=== PATIENT | female | born 1970 | race Caucasian/White ===

== ENCOUNTER 2020-04-20 09:20 | Outpatient (REF) | payer OTHER, SELFPAY ==
[2020-04-20 11:22] LABS: Estimated Average Glucose 223 mg/dL; Hemoglobin A1c % 9.4 %
[2020-04-20 11:59] LABS: Alanine Aminotransferase 21 U/L (0-31); Albumin Level 3.9 g/dL (3.5-5.0); Alkaline Phosphatase 60 U/L (39-117); Anion Gap 13 (12-20); Aspartate Amino Transferase 18 U/L (5-31); Bilirubin Total 0.9 mg/dL (0.0-1.0); Blood Urea Nitrogen 10 mg/dL (9-16); Calcium 8.8 mg/dL (8.4-10.2); Carbon Dioxide 26 mmol/L (22-29); Chloride 102 mmol/L (96-108); Cholesterol 137 mg/dL; Estimated Glomerular Filt Rate > 60; Glucose Fasting 177 mg/dL (60-99); HDL Cholesterol 35 mg/dL; LDL Cholesterol Calculated 73 mg/dl; Potassium 4.4 mmol/l (3.3-5.1); Sodium 137 mmol/L (135-145); Total Protein 6.7 g/dL (6.5-8.0); Triglycerides 145 mg/dL
[2020-04-20 11:59] LABS: Creatinine Urine 171.97 mg/dL; Microalbum/Creatinine Ratio Ur 9.8 ug/mg cr
== END 2020-04-20 09:21 | disposition home or self-care (01) ==
LOC: HO.MANLR 09:20
PROVIDERS: PCP Internal Medicine; Visit Provider Internal Medicine
DX: E11.9 Type 2 diabetes mellitus without complications (principal)
CPT/HCPCS: 80053; 80061; 82043; 83036

== ENCOUNTER 2020-09-04 08:32 | Outpatient (REF) | payer BC, SELFPAY ==
[2020-09-04 12:00] LABS: Estimated Average Glucose 226 mg/dL; Hemoglobin A1c % 9.5 %
== END 2020-09-04 08:33 | disposition home or self-care (01) ==
LOC: HO.MANLDS 08:32
PROVIDERS: PCP Internal Medicine; Visit Provider Internal Medicine
DX: E11.9 Type 2 diabetes mellitus without complications (principal)
CPT/HCPCS: 36415; 83036

== ENCOUNTER 2021-04-05 10:48 | Outpatient (REF) | payer BC, SELFPAY ==
[2021-04-05 14:31] LABS: Estimated Average Glucose 229 mg/dL; Hemoglobin A1c % 9.6 %
== END 2021-04-05 10:49 | disposition home or self-care (01) ==
LOC: HO.MANLDS 10:48
PROVIDERS: PCP Internal Medicine; Visit Provider Internal Medicine
DX: E11.9 Type 2 diabetes mellitus without complications (principal)
CPT/HCPCS: 36415; 83036

== ENCOUNTER 2021-08-03 16:12 | Outpatient (REF) | payer BC, SELFPAY ==
[2021-08-03 18:15] LABS: Estimated Average Glucose 214 mg/dL; Hemoglobin A1c % 9.1 %
== END 2021-08-03 16:13 | disposition home or self-care (01) ==
LOC: HO.MANLDS 16:12
PROVIDERS: PCP Internal Medicine; Visit Provider Internal Medicine
DX: E11.9 Type 2 diabetes mellitus without complications (principal)
CPT/HCPCS: 36415; 83036

== ENCOUNTER 2022-01-24 08:25 | Outpatient (REF) | payer BC, SELFPAY ==
[2022-01-24 11:42] LABS: Estimated Average Glucose 272 mg/dL; Hemoglobin A1c % 11.1 %
[2022-01-24 11:57] LABS: Alanine Aminotransferase 17 U/L (0-31); Albumin Level 3.9 g/dL (3.5-5.0); Alkaline Phosphatase 66 U/L (39-117); Anion Gap 14 (12-20); Aspartate Amino Transferase 13 U/L (5-31); Bilirubin Total 0.8 mg/dL (0.0-1.0); Blood Urea Nitrogen 13 mg/dL (9-16); Calcium 9.1 mg/dL (8.4-10.2); Carbon Dioxide 28 mmol/L (22-29); Chloride 99 mmol/L (96-108); Cholesterol 168 mg/dL; Estimated Glomerular Filt Rate > 60; Glucose Random 323 mg/dL (60-115); HDL Cholesterol 39 mg/dL; LDL Cholesterol Calculated 97 mg/dl; Sodium 136 mmol/L (135-145); Triglycerides 162 mg/dL
[2022-01-24 20:12] LABS: Microalbumin Urine < 5.0 mg/L
== END 2022-01-24 08:26 | disposition home or self-care (01) ==
LOC: HO.MANLDS 08:25
PROVIDERS: Visit Provider Internal Medicine
DX: E11.9 Type 2 diabetes mellitus without complications (principal)
CPT/HCPCS: 36415; 80053; 80061; 82043; 83036

== ENCOUNTER 2022-04-27 14:22 | Outpatient (REF) | payer BC, SELFPAY ==
[2022-04-27 18:33] LABS: Estimated Average Glucose 140 mg/dL; Hemoglobin A1c % 6.5 %
== END 2022-04-27 14:23 | disposition home or self-care (01) ==
LOC: HO.MANLDS 14:22
PROVIDERS: Visit Provider Internal Medicine
DX: E11.9 Type 2 diabetes mellitus without complications (principal)
CPT/HCPCS: 36415; 83036

== ENCOUNTER 2022-11-21 16:09 | Outpatient (REF) | payer BC, SELFPAY ==
[2022-11-21 18:03] LABS: MANUAL DIFF FLAG NO
[2022-11-21 18:27] LABS: Basophils Percent Auto 0.4 % (0-2); Eosinophils Absolute Auto 0.4 X10*3/uL (0.0-0.4); Eosinophils Percent Auto 5.2 % (0-4); Hematocrit 45.7 % (37.0-47.0); Hemoglobin 14.7 g/dl (12.0-16.0); Imm Gran Abs Auto 0.04 X10*3/uL (0.00-0.03); Imm Gran Pct Auto 0.5 % (0.0-0.4); Lymphocytes Absolute Auto 2.3 X10*3/uL (1.2-4.9); Lymphocytes Percent Auto 27.1 % (20-40); Mean Corpuscular HGB Conc 32.2 g/dl (31.0-35.0); Mean Corpuscular Hemoglobin 29.1 pg (27.0-33.0); Mean Corpuscular Volume 90.5 fL (80.0-98.0); Mean Platelet Volume 9.5 fL (9.4-12.3); Monocytes Absolute Auto 0.6 X10*3/uL (0.1-1.2); Monocytes Percent Auto 6.7 % (2-11); Neutrophils Absolute Auto 5.1 x10*3/uL (2.0-8.3); Neutrophils Percent Auto 60.1 % (45-73); Platelet Count 374 X10*3/uL (160-400); Red Blood Count 5.05 X10*6/uL (4.20-5.50); Red Cell Distribution Width 13.9 % (11.0-16.0); White Blood Count 8.5 X10*3/uL (4.8-10.8)
[2022-11-21 18:33] LABS: Estimated Average Glucose 200 mg/dL; Hemoglobin A1c % 8.6 %
[2022-11-21 18:53] LABS: Alanine Aminotransferase 16 U/L (0-31); Albumin Level 4.1 g/dL (3.5-5.0); Alkaline Phosphatase 64 U/L (39-117); Anion Gap 13 (12-20); Aspartate Amino Transferase 16 U/L (5-31); Bilirubin Total 0.9 mg/dL (0.0-1.0); Blood Urea Nitrogen 13 mg/dL (9-16); Calcium 9.9 mg/dL (8.4-10.2); Carbon Dioxide 25 mmol/L (22-29); Chloride 100 mmol/L (96-108); Estimated Glomerular Filt Rate > 60; Glucose Random 163 mg/dL (60-115); Potassium 4.1 mmol/L (3.3-5.1); Sodium 134 mmol/L (135-145)
[2022-11-21 19:30] LABS: Microalbum/Creatinine Ratio Ur 6.8 ug/mg cr
== END 2022-11-21 16:10 | disposition home or self-care (01) ==
LOC: HO.MANLDS 16:09
PROVIDERS: Visit Provider Physician Assistant
DX: E11.9 Type 2 diabetes mellitus without complications (principal); I10 Essential (primary) hypertension
CPT/HCPCS: 36415; 80053; 82043; 83036; 85025

== ENCOUNTER 2023-01-25 12:22 | Outpatient (REF) | payer BC, SELFPAY ==
[2023-01-26 05:24] LABS: Estimated Average Glucose 126 mg/dL
== END 2023-01-25 12:23 | disposition home or self-care (01) ==
LOC: HO.MANLDS 12:22
PROVIDERS: Visit Provider Internal Medicine
DX: E11.9 Type 2 diabetes mellitus without complications (principal)
CPT/HCPCS: 36415; 83036

== ENCOUNTER 2023-10-23 15:17 | Outpatient (REF) | payer OTHER, SELFPAY ==
[2023-10-23 17:22] LABS: MANUAL DIFF FLAG NO
[2023-10-23 17:47] LABS: Basophils Percent Auto 0.6 % (0-2); Eosinophils Absolute Auto 0.3 X10*3/uL (0.0-0.4); Eosinophils Percent Auto 3.9 % (0-4); Hematocrit 48.5 % (37.0-47.0); Hemoglobin 15.7 g/dl (12.0-16.0); Imm Gran Abs Auto 0.01 X10*3/uL (0.00-0.03); Imm Gran Pct Auto 0.1 % (0.0-0.4); Lymphocytes Absolute Auto 2.1 X10*3/uL (1.2-4.9); Mean Corpuscular HGB Conc 32.4 g/dl (31.0-35.0); Mean Corpuscular Hemoglobin 29.5 pg (27.0-33.0); Mean Corpuscular Volume 91.2 fL (80.0-98.0); Mean Platelet Volume 9.7 fL (9.4-12.3); Monocytes Absolute Auto 0.5 X10*3/uL (0.1-1.2); Monocytes Percent Auto 6.9 % (2-11); Neutrophils Absolute Auto 4.1 x10*3/uL (2.0-8.3); Neutrophils Percent Auto 58.5 % (45-73); Platelet Count 334 X10*3/uL (160-400); Red Blood Count 5.32 X10*6/uL (4.20-5.50); Red Cell Distribution Width 14.2 % (11.0-16.0)
[2023-10-23 17:57] LABS: Estimated Average Glucose 174 mg/dL; Hemoglobin A1c % 7.7 % (<6.0)
[2023-10-23 18:04] LABS: Alanine Aminotransferase 19 U/L (0-31); Albumin Level 3.9 g/dL (3.5-5.0); Alkaline Phosphatase 55 U/L (39-117); Anion Gap 11 (12-20); Aspartate Amino Transferase 18 U/L (5-31); Bilirubin Total 1.1 mg/dL (0.0-1.0); Blood Urea Nitrogen 8 mg/dL (9-16); Calcium 9.3 mg/dL (8.4-10.2); Carbon Dioxide 26 mmol/L (22-29); Chloride 105 mmol/L (96-108); Estimated Glomerular Filt Rate > 60; Glucose Random 137 mg/dL (60-115); Potassium 3.9 mmol/L (3.3-5.1); Sodium 138 mmol/L (135-145)
== END 2023-10-23 15:18 | disposition home or self-care (01) ==
LOC: HO.MANLDS 15:17
PROVIDERS: Visit Provider Physician Assistant
DX: E11.9 Type 2 diabetes mellitus without complications (principal)
CPT/HCPCS: 36415; 80053; 83036; 85025

== ENCOUNTER 2024-07-08 14:02 | Outpatient (REF) | payer OTHER, SELFPAY ==
--- OUTSIDE RECORDS SUMMARY | 2024-07-08 16:09 | XMS_ITS | Data Portability ---
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 Joe Novak [facility] Internal Medicine [address] [facility] [address] [address] 08/04/2021 08:54:57 08/06/2021 15:04:13 Diabetes mellitus 83916593 E13.8 will try a1c in 2-3mo and see if it comes down will offer trulicity as she refuses insulin she will consider Seasonal a ffective disorder 216776291 F33.9 get sun lamp will follow Type 2 wilner betes mellitus 25894188 E11.9 is poorly comliant even with trulicity once a week she admits she is avoiding taking care of herselfshe is noncomplia nt with her meds, noncomplia nt with the trulicity noncomplia nt with her dietnoncom pliant with exercisept admits she knows all this and just has a mental block on this she is willing to try the lantus samples given 10 units we will give samples PRIOR long detailed discussion re good diet and exercisest ill pending most recent labher a1c is 9.6 poor controll has not started on lantus yet she is staying on the trulicity will have her start collecting glucose readings had dm eye exam in summer doing ok Viral amparo roenteritis caused by Rotavirus [id number] A08.0 she janet cont with clear liquids and i will phone in some zofran [id number] Joe Novak [facility] Internal Medicine [address] [facility],[place] [address] 01/24/2022 15:13:08 01/24/2022 16:20:52 Type 2 diabetes mellitus 49492719 E11.9 is poorly comliant even with trulicity once a week she admits she is avoiding taking care of herselfshe is noncomplia nt with her meds, noncomplia nt with the trulicity noncomplia nt with her dietnoncom pliant with exercisept admits she knows all this and just has a mental block on this she is willing to try the lantus samples given 10 units we will give samples PRIOR long detailed discussion re good diet and exercisest ill pending most recent labher a1c is 9.6 poor controll has not started on lantus yet she is staying on the trulicity will have her start collecting glucose readings had dm eye exam in summer doing ok Hypertensive disorder 38 839356 I10 bps are stable and is doing ok here ;;; [id number] Joe Novak [facility] Internal Medicine [address] [facility], [place] [address] 05/04/2022 08:55:54 05/06/2022 10:48:27 Hypertensive disorder 81764754 I10 bps are stable and is doing ok here ;;; Type 2 wilner betes mellitus 81108942 E11.9 she is finaly doing well using the dexcom now and the mounjaro as well as down on the lantus to 15so she is staying with them at [facility] and doing well [id number] MARVIN KATHLEEN [facility] [address] [facility] [address] [address] 06/15/2022 08:15:20 06/17/2022 14:23:41 Type 2 diabetes mellitus 05366678 E11.9 excellent control currently 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 51684 MARVIN KATHLEEN [facility] [address] [facility] [address],[place] [address] 07/06/2022 11:16:50 07/08/2022 10:21:28 Transient visual loss 81677826 H53.121 possible aura vs ocular migraine? Type 2 wilner betes mellitus 12404542 E11.9 excellent control currently Migraine 93216143 G43.00 9 will be seeing both neuro and cardiology 66201 MARVIN KATHLEEN Internal [facility] [address] [facility] [address],[place] [address] 07/27/2022 08:57:29 07/29/2022 16:31:36 Essential hypertension 07220223 I10 stable today Migraine 93697800 G43.00 9 will monitor 04191 MARVIN KATHLEEN [facility] Internal Medicine [address] [facility] [address] [address] 09/13/2022 09:29:42 09/13/2022 13:49:14 Moderate recurrent major depression 15006365 F33.1 stable Hypertensive disorder 38 817857 I10 stable Type 2 wilner betes mellitus 76731128 E11.9 will be restarting mounjaro and dexcom Essential hypertension 51638204 I10 stable today Diabetes mellitus 570238 09 E13.8 will cont med and restart dexcom [id number] MARVIN KATHLEEN [facility] [address] [facility] [address] [address] 11/21/2022 15:25:45 11/22/2022 08:03:44 Type 2 diabetes mellitus 18776151 E11.9 will be restarting mounjaro and dexcomneed s lab work restarted Essential hypertension 71752835 I10 excellent today [id number] MARVIN KATHLEEN [facility] Internal Medicine [address] [facility] [address],[place] [address] 03/10/2023 16:14:08 03/10/2023 16:51:26 Type 2 diabetes mellitus 05050613 E11.9 will be restarting mounjaro and dexcomneed s lab work restarted Essential hypertension 27663554 I10 excellent today Moderate r ecurrent major depression 28307726 F33.1 stable [id number] MARVIN KATHLEEN [facility] Internal Medicine [address] [facility] [address],[place] [address] 06/09/2023 15:57:20 06/12/2023 09:19:42 Disorder of pituitary gland 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 stable Type 2 wilner betes mellitus 17807171 E11.9 doing well Depressive disorder 3548 9007 F33.9 stable Depressive disorder 3548 9007 F33.1 Uric acid renal calculus 706614609 N20.0 will recheck levels Screening mammography 24 361456 Z12.31 will set up with M [id number] MARVIN KATHLEEN [facility] Internal Medicine [address] [facility] [address] [address] 09/15/2023 16:07:33 09/18/2023 08:18:56 Depression screening 480125212 Z13.31 stable Type 2 wilner betes mellitus 71590249 E11.9 will set up [facility] Diabetes mellitus 376514 09 E13.8 will cont med and restart dexcom [id number] MARVIN KATHLEEN [facility] Internal Medicine [address] [facility] [address] [address] 10/13/2023 13:54:15 10/16/2023 08:54:22 Type 2 diabetes mellitus 90279905 E11.9 will set up [facility] Hypertensive disorder 38 959334 I10 stable [id number] MARVIN KATHLEEN [facility] Internal Medicine [address] [facility] [address] [address] 11/06/2023 15:42:47 11/07/2023 07:45:40 Depression screening 466313810 Z13.31 stable Type 2 wilner betes mellitus 84496952 E11.9 send in [employer] says it is approvedwi ll check with insurance [id number] MARVIN KATHLEEN Internal Medicine [address] [facility] [address],[place] [address] 04/29/2024 15:33:17 04/29/2024 16:24:53 Type 2 diabetes mellitus 00034749 E11.9 send in [employer] says it is approvedwi ll check with insurance Essential hypertension 16739477 I10 excellent today Hirsutism 609863747 L68. 0 will keep an eye on her potassium [id number] MARVIN KATHLEEN Internal Medicine [address] [facility] [address],[place] [address] 06/04/2024 15:40:21 06/04/2024 16:51:31 Type 2 diabetes mellitus 01582470 E11.9 doing great back on the shy Hypokalemia 32055317 E87 .6 Health Concerns Section Related Observation LastModified by Organization Detai ls LastModified Time None Recorded Concern Status LastModified by Organization Details LastModified Time None Recorded Advance Directives Directive None Recorded Payers Encounter Date Sequence Insurance Name Policy Number Policy Chavez Covered Member ID Chavez Member ID Guarantor Name 09/15/2023 1 [facility] [id number] Lesli Walaszek [id number] Lesli Walaszek 10/13/2023 1 [facility] [id number] Lesli Walaszek [id number] Lesli Walaszek 11/06/2023 1 [facility] [id number] Lesli Walaszek [id number] Lesli Walaszek 04/29/2024 1 [facility] [id number] Lesli Walaszek [id number] Lesli Walaszek 06/04/2024 1 [facility] [id number] Lesli Walaszek [id number] Lesli Walaszek Notes Date Note Type Note Provider Name a nd Address Organization Details Recorded Time 09/15/2023 text/html f/u Type 2 diabetes: will work with insurance now that she is on HNE to get ozempic covered PAset up for the next 3 mosthe patient is also given free samples in office for rybelsus and jardiance for the intermgiven freestyle sara 3 in the office will work with patient to get her back on the correct medication since she hasn't been on mounjaro she has gained 50 pounds, still swimming, diet still very good will work with patient going forward on keeping her sugar controlled MARVIN KATHLEEN [address] [place], [address], [facility] Internal [facility] 09/15/2023 16:50:49 10/13/2023 text/html 3 week f/u the patient reports that she never got a message about the ozempicno messages from insurance about a denialthe patient reports that the has been doing well the patient is otherwise doingthe patient did well with jardiance will resubmit it to the insurance given samples MARVIN KATHLEEN [address] [place], [address], [facility] 10/13/2023 14:43:30 11/06/2023 text/html f/u T2DM:the patient reports that she is doing wellhas the free samplesthe patient PA got approved for ozempicwill f/u with insurance about if they can release it to the pharmacy the patient reports that she is doing well with the ozempic and jardiance samples I gave arabellall send in the jardiance to her pharmacy will continue to monitor her progress her levels look pretty good since the haven't gone up to 10%she is up from 6% stable to 7.7% with loss of medications due to insurance change MARVIN KATHLEEN [address] [place], [address], [facility] 11/06/2023 17:39:23 04/29/2024 text/html 3 mos f/u T2DM: needs f/u bwdoing really well on the mounjaro, her sugar is coming down, her weight is dropping down from the 20 pounds she gained after she was forced to come off the mounjaro since her insurance changed doing much better will adjust up the dose to the 7.5 mg, she was originally with 15 mg, will keep increase HTN: stable will need to monitor the potassium level MARVIN KATHLEEN [address] [place], [address], [facility] 04/29/2024 16:22:28 06/04/2024 text/html 1 mos f/u T2DM: doing much better on the mounjarowill increase the rate 10 mg, no side effects or symptoms the patient will continue monitoring her sugar the patient was seen by for fall, tripped over suitcase, the patient hurt her left hand, right knee and left footfoot is still bothering her, probable high grade sprain given level of inflammation in the footXR clear, if it still doesn't improve will f/u with XR the patient is doing well overall her father just passed awaydiscussed possibly later stopping the sertraline when she is feeling better MARVIN KATHLEEN [address] [facility], [place], [address], [facility] Internal Medicine 06/04/2024 16:48:28 OBGyn Episode No OBEpisode recorded.
--- OUTSIDE RECORDS SUMMARY | 2024-07-08 16:10 | XMS_ITS | Clinical Summary ---
Author Organization [facility] Address [address] [place] [address] Care Team Providers Care Gathering Machine Setter Name Role Phone Unavailable Primary Care Provider Unavailabl e Social History Tobacco Use Types Packs/Day Years Used Date Smoking Tobacco: Never Assessed Sex and Gender Information Value Date Recorded Sex Assigned at Not on file Gender Identity Not on file Sexual Orientation Not on file Plan of Treatment Not on file
[2024-07-08 17:58] LABS: MANUAL DIFF FLAG NO
[2024-07-08 18:11] LABS: Basophils Absolute Auto 0.1 X10*3/uL (0.0-0.2); Basophils Percent Auto 0.9 % (0-2); Eosinophils Absolute Auto 0.7 X10*3/uL (0.0-0.4); Eosinophils Percent Auto 9.6 % (0-4); Hematocrit 45.3 % (37.0-47.0); Hemoglobin 14.8 g/dl (12.0-16.0); Imm Gran Abs Auto 0.03 X10*3/uL (0.00-0.03); Imm Gran Pct Auto 0.4 % (0.0-0.4); Lymphocytes Absolute Auto 2.2 X10*3/uL (1.2-4.9); Lymphocytes Percent Auto 28.2 % (20-40); Mean Corpuscular HGB Conc 32.7 g/dl (31.0-35.0); Mean Corpuscular Hemoglobin 29.4 pg (27.0-33.0); Mean Corpuscular Volume 90.1 fL (80.0-98.0); Mean Platelet Volume 9.7 fL (9.4-12.3); Monocytes Absolute Auto 0.5 X10*3/uL (0.1-1.2); Monocytes Percent Auto 6.7 % (2-11); Neutrophils Absolute Auto 4.2 x10*3/uL (2.0-8.3); Neutrophils Percent Auto 54.2 % (45-73); Platelet Count 309 X10*3/uL (160-400); Red Blood Count 5.03 X10*6/uL (4.20-5.50); Red Cell Distribution Width 13.8 % (11.0-16.0); White Blood Count 7.7 X10*3/uL (4.8-10.8)
[2024-07-08 18:23] LABS: Estimated Average Glucose 163 mg/dL; Hemoglobin A1C 214.2345 umol/L; Hemoglobin A1c % 7.3 % (<6.0); Total Hemoglobin (HGBA1C) 3782.8544 umol/L
[2024-07-08 18:38] LABS: Cholesterol 191 mg/dL (<200); HDL Cholesterol 45 mg/dL (>40); LDL Cholesterol Calculated 112 mg/dL (<100); Triglycerides 173 mg/dL (<150)
== END 2024-07-08 14:03 | disposition home or self-care (01) ==
LOC: HO.MANLDS 14:02
PROVIDERS: Visit Provider Physician Assistant
DX: E11.9 Type 2 diabetes mellitus without complications (principal)
CPT/HCPCS: 36415; 80061; 83036; 85025

== ENCOUNTER 2025-04-04 11:25 | Outpatient (REF) | payer OTHER, SELFPAY ==
--- OUTSIDE RECORDS SUMMARY | 2025-04-04 12:15 | XMS_ITS | Encounter Summary ---
Author Organization [facility] Address [address] [place] [address] Phone Care Team Providers Care Fine Sander Name Role Phone Scarlet Joe Rojas DO Unavailable Nicolle Bansal MACHINE TENDER Unavailable [phone] Keila Jim MACHINE TENDER Unavailable [phone] Madelaine Rodriguez MD Unavailable [phone] Oralia Pastor NP Unavailable [phone] Nan Portillo MD Unavailable [phone] Joe Novak DO Primary Care Provider [phone] Joe Novak DO Unavailable Scarlet, Joe Rojas DO Primary Care Provider [phone] Encounter Details Date Type Department Care Team (Late st Contact Info) Description 03/19/2018 Ancillary Orders Virtual Department [address] [place] [address] Joe Novak DO [address] [employer] [place] [address] [place] [address] Breast screening Social History Tobacco Use Types Packs/Day Years Used Date Smoking Tobacco: Never Assessed Comments Unknown Sex and Gender Information Value Date Recorded Sex Assigned at Female 04/15/2022 12:43 PM EST Legal Sex Female 9:33 PM EDT Gender Identity Female 04/15/2022 12:43 PM EST Sexual Orientation Straight 04/15/2022 12 :43 PM EST documented as of this encounter Plan of Treatment Not on file documented as of this encounter Results * BI MAMMOGRAM SCREENING WITH TOMOSYNTHESIS WITH CAD (BILATERAL) (03/20/2018 2:14 PM EST) Anatomical Region Laterality Modality Breast Left, Breast Right, Breast Bilateral Bila teral Mammography 03/20/2018 2:45 PM EST Impressions 03/20/2018 2:51 PM EST No mammographic evidence of malignancy. Recommend routine annual surveillance. BI-RADS CATEGORY: 2 - Benign finding. DENSITY: There are scattered fibroglandular densities. POS - CDHMAMA Narrative 03/20/2018 2:51 PM EST 47-year-old female with no current breast symptoms. Comparison made to previous on 11/08/2016 and as far back as 12/13/2006. Interpretation made in conjunction with computer-aided detection and tomosynthesis. There are scattered areas of fibroglandular density. Stable benign right upper outer quadrant lymph node. There are no suspicious masses, areas of architectural distortion, or suspicious clusters of microcalcifications. Procedure Note Maggie Boss MD - 03/20/2018 47-year-old female with no current breast symptoms. Comparison made toprevious on 11/08/2016 and as far back as 12/13/2006. Interpretation madein conjunction with computer-aided detection and tomosynthesis. There are scattered areas of fibroglandular density. Stable benign rightupper outer quadrant lymph node. There are no suspicious masses, areas of architectural distortion, orsuspicious clusters of microcalcifications. IMPRESSION: No mammographic evidence of malignancy. Recommend routine annualsurveillance. BI-RADS CATEGORY: 2 - Benign finding. DENSITY: There are scattered fibroglandular densities. POS - CDHMAMA us Joe A Bigda DO IMG MG EXAMS Final Result documented in this encounter Visit Diagnoses Diagnosis Breast screening Breast screening, unspecified Breast screening Breast screening, unspecified documented in this encounter Additional Health Concerns Infection Onset Date Last Indicated Resolved Time CoV-Risk 08/01/2023 08/01/2023 08/12/2023 1:21 AM EDT CoV-Risk 06/21/2024 06/21/2024 07/02/2024 1:21 AM EST documented as of this encounter Care Teams Fine Sander Relationship Specialty Start Date End Date Joe Novak DO [address] [address] PCP - General 05/18/17 06/19/22 Joe Novak DO [address] [address] PCP - General Internal Medicine 06/20/22 Joe Novak DO [address] [place] [address] Historical LMR Provider 03/05/17 05/22/21 Nicolle Bansal, MACHINE TENDER [address] [place] [address] [email or web address] Historical LMR Provider 03/05/17 2 Keila Jim, JOHN [address] [place] [address] Historical LMR Provider 03/05/17 2 Madelaine Rodriguez MD [address] [address] Historical LMR Provider 03/05/17 Oralia Pastor NP [address] [place] [address] Historical LMR Provider 03/05/17 2 Nan Portillo MD [address] [place] [address] [email or web address] Historical LMR Provider 03/05/17 05/22/21 Joe Novak DO [address] [place] [address] [email or web address] Insurance Assigned Provider 08/19/23 11/18/23 documented as of this encounter Additional Source Comments The information contained in this document represents components of the legal health record. It is not the complete legal health record.[facility]
--- OUTSIDE RECORDS SUMMARY | 2025-04-04 12:15 | XMS_ITS | Encounter Summary ---
Author Organization [facility] Address [address] [place] [address] Phone Care Team Providers Care Soil Analyst Name Role Phone Scarlet Joe Rojas DO Unavailable Nicolle Bansal CATHODE RAY TUBE ASSEMBLER Unavailable [phone] Keila Jim CATHODE RAY TUBE ASSEMBLER Unavailable [phone] Madelaine Rodriguez MD Unavailable [phone] Oralia Pastor NP Unavailable [phone] Nan Portillo MD Unavailable [phone] Bignorth, Joe Rojas DO Primary Care Provider [phone] Joe Novak DO Unavailable Bigda, Joe Rojas DO Primary Care Provider [phone] Encounter Details Date Type Department Care Team (Late st Contact Info) Description 03/26/2018 Transcribe Orders [facility] Main [address] [place] [address] Joe Novak, DO [address] [facility] [place] [address] Type 2 diabetes mellitus without complication, unspecified whether vermin exterminator insulin use (Primary Dx) Social History Tobacco Use Types Packs/Day Years Used Date Smoking Tobacco: Never Assessed Comments No Sex and Gender Information Value Date Recorded Sex Assigned at Female 04/15/2022 12:43 PM EST Legal Sex Female 9:33 PM EDT Gender Identity Female 04/15/2022 12:43 PM EST Sexual Orientation Straight 04/15/2022 12 :43 PM EST documented as of this encounter Functional Status documented as of this encounter Plan of Treatment Not on file documented as of this encounter Results * (ABNORMAL) Hemoglobin A1c (03/26/2018 5:12 PM EST) HEMOGLOBIN A1C 9.5(H) 4.3 - 5.8 % [facility] Blood 03/26/2018 5:12 PM EST 03/26/2018 5:14 PM EST us Joe Novak DO LAB BLOOD BKR ORDERABLES Final R esult Performing Organization Address City/State/[facility] Co de Phone Number [facility] [address] [place] [address] documented in this encounter Visit Diagnoses Diagnosis Type 2 diabetes mellitus without complication, unspecified whether vermin exterminator insulin use- Primary documented in this encounter Additional Health Concerns Infection Onset Date Last Indicated Resolved Time CoV-Risk 08/01/2023 08/01/2023 08/12/2023 1:21 AM EDT CoV-Risk 06/21/2024 06/21/2024 07/02/2024 1:21 AM EST documented as of this encounter Care Teams Soil Analyst Relationship Specialty Start Date End Date Joe Novak DO [address] [address] [email or web address] PCP - General 05/18/17 06/19/22 Joe Novak DO [address] [employer] [facility] [address] [place] [address] PCP - General Internal Medicine 06/20/22 Joe Novak DO [address] [place] [address] Historical LMR Provider 03/05/17 05/22/21 Nicolle Bansal NP [address] [place] [address] [email or web address] Historical LMR Provider 03/05/17 2 Keila Jim NP [address] [place] [address] Historical LMR Provider 03/05/17 2 Madelaine Rodriguez MD [address] [address] Historical LMR Provider 03/05/17 Oralia Pastor NP [address] [place] [address] Historical LMR Provider 03/05/17 2 Nan Portillo MD [address] [address] [email or web address] Historical LMR Provider 03/05/17 05/22/21 Joe Novak DO [address] [place] [address] [place] [address] Insurance Assigned Provider 08/19/23 11/18/23 documented as of this encounter Additional Source Comments The information contained in this document represents components of the legal health record. It is not the complete legal health record.[facility]
--- OUTSIDE RECORDS SUMMARY | 2025-04-04 12:15 | XMS_ITS | Encounter Summary ---
Author Organization [facility] Address [facility] [employer] [address] [address] Phone Care Team Providers Care Warrant Server Name Role Phone Madelaine Rodriguez MD Unavailable [phone] Bigda, Joe A DO Primary Care Provider [phone] Bigda, Joe A DO Unavailable Bigda, Joe A DO Primary Care Provider [phone] Encounter Details Date Type Department Care Team (Late st Contact Info) Description 06/07/2022 Procedure Pass [facility], [address] [address] Social History Tobacco Use Types Packs/Day Years Used Date Smoking Tobacco: Never Smokeless Tobacco: Never Alcohol Use Standard Drinks/Week Comments Yes 0 (1 standard drink = 0.6 oz pur e alcohol) occasional Comments No Sex and Gender Information Value Date Recorded Sex Assigned at Female 04/15/2022 12:43 PM EST Legal Sex Female 9:33 PM EDT Gender Identity Female 04/15/2022 12:43 PM EST Sexual Orientation Straight 04/15/2022 12 :43 PM EST 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 Wish to be (Past 1 Month) No 06/07/2022 5:00 PM Yadira Vail RN 2. Non-Specific Active Suici travis Thoughts (Past 1 Month) No 06/07/2022 5:00 PM Ebenezer Vail RN 6. Suicidal Behavior (Lifetime) No 5:00 PM Yadira Vail RN documented as of this encounter Plan of Treatment Not on file documented as of this encounter Visit Diagnoses Not on filedocumented in this encounter Additional Health Concerns Infection Onset Date Last Indicated Resolved Time CoV-Risk 08/01/2023 08/01/2023 08/12/2023 1:21 AM EDT CoV-Risk 06/21/2024 06/21/2024 07/02/2024 1:21 AM EST documented as of this encounter Care Teams Warrant Server Relationship Specialty Start Date End Date Joe Novak DO [address] [address] PCP - General 05/18/17 06/19/22 Joe Novak DO [address] [address] PCP - General Internal Medicine 06/20/22 Madelaine Rodriguez MD [address] [address] Historical LMR Provider 03/05/17 Joe Novak DO [address] [place] [address] Insurance Assigned Provider 08/19/23 11/18/23 documented as of this encounter Additional Source Comments The information contained in this document represents components of the legal health record. It is not the complete legal health record.[facility]
--- OUTSIDE RECORDS SUMMARY | 2025-04-04 12:15 | XMS_ITS | Clinical Summary ---
Author Organization [facility] Address [address] [place] [address] Phone Care Team Providers Care Police Crime Scene Technician Name Role Phone Madelaine Rodriguez MD Unavailable [phone] Joe Novak DO Primary Care Provider [phone] Allergies No known active allergies Medications allopurinol (ZYLOPRIM) 300 MG tablet Take 300 mg by mouth daily. Active sertraline (ZOLOFT) 100 MG tablet Take 200 mg by mouth daily. Active atorvastatin (LIPITOR) 10 MG tablet Take 10 mg by mouth daily. Active clobetasol (TEMOVATE) 0.05 % ointmentIndicat ions:Lichen sclerosus APPLY TO VULVA TWICE WEEKLY 15 g 2 Active Additional Information Patient taking differently: APPLY TO VULVA TWICE WEEKLY, Monday/, Reported on 06/07/2022 amLODIPine (NORVASC) 10 MG tablet Take 0.5 tablets (5 mg total) by mouth daily. Okay to restart if systolic blood pressure is over 120, restarted at half dose 3 Active Additional Information Patient taking differently: 10 mgOral Daily, Okay to restart if systolic blood pressure is over 120, restarted at half dose, Reported on 07/21/2022 tirzepatide (MOUNJARO) 10 mg/0.5 mL PnIj 3 Active SUMAtriptan (IMITREX) 50 MG tabletIndicatio ns:Migraine with visual aura Take 1 tablet (50 mg total) by mouth once as needed for migraine. Can repeat dose in 2 hours if needed. Do not exceed 2 doses in a 24 hour period. Max dose 200mg/ day 18 tablet 11 3 Active lisinopril (PRINIVIL,ZESTR IL) 10 MG tablet 3 Active Active Problems Problem Noted Date Diagnosed Date TIA (transient ischemic attack) 07/21/2022 Assessment & Plan (07/21/2022 12:17 PM EST): Patient had an episode of monocular blindness which was initially diagnosed to be a TIA. He tells me that now they are thinking about whether it is secondary to migraine. Cardiac work-up included an echocardiogram which did not show PFO and no intracardiac thrombus and normal LV function The monitor for a week did not show any evidence of atrial fibrillation or flutter. I asked the patient if she would like to go through a 30-day Holter monitor and/or an ILR. Patient at this point thinks that she is doing well and since there there is question on diagnosis of TIA also she will rather sit tight and see how she does Also confident about getting treatment for hypertension and cardiac risk factors and at this point would not like to have any cardiology work-up Paroxysmal atrial fibrillation 07/21/2022 Assessment & Plan (07/21/2022 12:19 PM EST): She had 1 episode in her Apple Watch which told her that she had atrial fibrillation and this was before her stroke. At this point she does not want to have any work-up for atrial fibrillation including ILR or 30-day event monitor. I advised her that obesity hypertension and sleep apnea are important because of atrial fibrillation and she should continue to lose weight and get a sleep study done other than treatment of her hypertension she agreed and she will go back to her primary care physician Migraine 07/06/2022 09/08/2022 Transient visual loss 06/15/2022 09/08/2022 Diabetes 06/07/2022 Assessment & Plan (06/09/2022 11:28 AM EST): Home on outpatient regimen Transient vision disturbance of right eye 2022 Assessment & Plan (06/09/2022 11:57 AM EST): Follow-up with [facility] neurology on 06/09 thought she may be having a migraine with prolonged aura F/u with neurology within 2 months. Neurologist reconfirmed that she does not have any concern for giant cell arteritis/PMR, was not concern for acute stroke or TIA. Also confirmed that attendings read of the EEG showed that the previously seen spikes were a normal variant and the test is normal showing no epileptiform discharges. Bruising 01/08/2022 Uncontrolled type 2 diabetes mellitus 06/27/2019 Family history of breast cancer 06/27/2019 Overview (06/27/2019): Sister with breast cancer twice Assessment & Plan (06/27/2019 4:25 PM EST): Unknown if genetic testing done on sister; asked patient again to speak with her sister about this; discussed the benefits of this knowledge Obesity due to excess calories with serious katya rbidity 03/28/2018 Lichen sclerosus 09/12/2017 Overview (04/22/2022): Biopsy proven Clobetasol once weekly, more as needed Assessment & Plan (09/23/2020 10:55 AM EDT): Using clobetasol once every 1-2 weeks, minimally itchy Hypopigmented vulva and perineum, without lesions except for skin split at perineum. Absent labia minora Advised at least once weekly clobetasol Assessment & Plan (06/27/2019 4:26 PM EST): Labia minora absent, the area medial to hairline is excoriated and reddened Discussed avoid soaps, scratching. Barrier creams revewed. [facility] guidelines put in AVS Hypertension 09/12/2017 Assessment & Plan (07/21/2022 12:19 PM EST): She is getting treated with amlodipine. She will follow-up with her primary care physician and get hypertension treated optimally. Assessment & Plan (06/09/2022 11:28 AM EST): Blood pressures were lower than baseline in hospital, restarted at the time of discharge at significantly lower doses Will need PCP follow-up within the next few business days. 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 Immunizations Immunization Administration Dates Next Due COVID-19 (Pre-03/06) Moderna Vaccine, mRNA, PF 03/22/2021,06/12/2020,05/15/2020 Influenza Quadrivalent w/ Preservative IM 2020,01/15/2020,03/20/2018 Tdap 11/04/2015 Family History Medical History Relation Comments CV disease Father Hypertension Father Diabetes mellitus Maternal Grandmother CV disease Mother Colon cancer Mother Hypertension Mother Lung cancer Mother Breast cancer Sibling 1 Diabetes mellitus Sibling 1 Atrial fibrillation Sister Breast cancer Sister an had reoccuren ce Relation Status Comments Father Alive Maternal Grandmother Mother Sibling 1 Sibling 2 Sister Social History Tobacco Use Types Packs/Day Years Used Date Smoking Tobacco: Never Passive Smoke Exposure: Never Smokeless Tobacco: Never Alcohol Use Standard Drinks/Week Comments Not Currently 0 (1 standard drink = 0.6 oz pur e alcohol) occasional Education Answer Date Recorded Are you interested in more education? Not on erika e 09/08/2022 Are you concerned about learning? Not on file 09/08/2022 No 09/08/2022 No 09/08/2022 Digital Access Answer Date Recorded No 10/08/2022 No 10/08/2022 Reliable internet access at home? Not on file 10/08/2022 Device with a working camera? Not on file Intimate Partner Violence Answer Date R ecorded Are you denied basic needs s uch as food, clothing, or medical care? No 06/21/2024 In the past 12 months have y ou been in a relationship with a person who hurts, threatens, or tries to control you? No 06/21/2024 Are you denied basic needs s uch as food, clothing, or medical care? No 06/21/2024 In the past 12 months have y ou been in a relationship with a person who hurts, threatens, or tries to control you? 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 file Not on file Last Filed Vital Signs Vital Sign Reading Time Taken Comments Blood Pressure 114/81 06/21/2024 1:21 PM EST Pulse 84 06/21/2024 1:21 PM EST Temperature 36.9 C (98.4 F) 06/21/2024 1:21 PM EST Respiratory Rate 16 06/21/2024 1:21 PM EST Oxygen Saturation 100% 06/21/2024 1:21 PM EST Inhaled Oxygen Concentration - - Weight 125.2 kg (276 lb) 06/21/2024 5:39 AM EST Height 170.2 cm (5' 7 ) 06/21/2024 5:39 AM EST Body Mass Index 43.23 06/21/2024 5:39 AM EST Plan of Treatment Health Maintenance Due Date Last Done Comments DEPRESSION SCREENING 1983 HEPATITIS C SCREENING 10/04/1989 HIV ONE-TIME SCREENING (18-65 YEARS) 10/04/1989 PNEUMOCOCCAL VACCINES (50+ years) (1 of 2 - PCV) 10/04/1990 COLOGUARD 10/04/2016 COLONOSCOPY 10/04/2016 COLORECTAL CANCER SCREENING 10/04/2016 FIT TEST 10/04/2016 FOBT 10/04/2016 SIGMOIDOSCOPY 10/04/2016 VIRTUAL COLONOSCOPY 10/04/2016 DIABETIC EYE EXAM 06/27/2019 RSV VACCINE (1 - Risk 50-74 years 1-dose series) 10/04/2021 ZOSTER VACCINES (1 of 2) 10/04/2021 HEMOGLOBIN A1C 09/02/2023 03/03/2023, 10, 11/21/2022, Additional history exists MAMMOGRAM 05/13/2024 05/13/2022, 09/12, 03/20/2018 BLOOD PRESSURE 11/15/2024 05/18/2024 INFLUENZA VACCINE (#1) 2024 , 02/09/2023, 02/12/2021, Additional history exists COVID-19 VACCINE (5 - 2024- season) 2025 02/11/2024, 03/22/2021, 06/12/2020, Additional history exists CREATININE LEVEL 06/21/2025 06/21/2024, 03/2023, 06/20/2022, Additional history exists POTASSIUM LEVEL 06/21/2025 06/21/2024, 06/15, 06/20/2022, Additional history exists PAP SMEAR 09/23/2025 09/23/2020, 06/25/2015 Adult Td,Tdap Booster 11/03/2025 11/04/2015 SMOKING STATUS SCREENING (Once After 26 Yrs) Completed 05/18/2024 HEPATITIS A VACCINES Aged Out No long er eligible based on patient's age to complete this topic HIB VACCINES Aged Out No longer eligi ble based on patient's age to complete this topic MENINGOCOCCAL VACCINES (ACWY) Aged Out No longer eligible based on patient's age to complete this topic MENINGOCOCCAL VACCINES (B) Aged Out N o longer eligible based on patient's age to complete this topic Medical Devices Not on file Procedures Procedure Name Priority Date/Time Associated Diagnosis Comments BASIC METABOLIC PANEL (BMP) STAT 06/21/2024 7:08 AM EST HEMOGLOBIN A1C Routine 06/08/2022 5:08 AM EST BI MAMMOGRAM SCREENING WITH TOMOSYNTHESIS WITH CAD (BILATERAL) Routine 05/13/2022 3:06 PM EST Breast cancer screening by mammogram PAP TEST Routine 09/23/2020 12:00 AM EDT from Last 3 Months or Most Recently Relevant to Health Maintenance Results * (ABNORMAL) Basic metabolic panel (06/21/2024 7:08 AM EST) SODIUM 136 133 - 146 mmol/L [facility] CHLORIDE 100 96 - 108 mmol/L [facility] POTASSIUM 4.3 3.3 - 5.1 mmol/L [facility] CO2 24 21 - 35 mmol/L [facility] BUN 18 6 - 19 mg/dL [facility] CREATININE 0.80 0.5 - 1.5 mg/dL [facility] GLUCOSE 195(H) 70 - 99 mg/dL [facility] CALCIUM 9.4 8.4 - 10.3 mg/dL [facility] EGFR 89 >59 mL/min/1.7 3m2 [facility] Comment:Estimated glomerular filtration rate calculated using the CKD-EPI refit equation. ANION GAP 16 10 - 20 mmol/L [facility] Blood 06/21/2024 7:08 AM EST 06/21/2024 7:10 AM EST us Jarett Villeda MD LAB BLOOD BKR ORDERABLES Final Result Performing Organization Address City/[facility]/ZIP Co de Phone Number [address] [address] * (ABNORMAL) Hemoglobin A1c (06/08/2022 5:08 AM EST) HEMOGLOBIN A1C 5.9(H) 4.3 - 5.8 % [facility] Blood 06/08/2022 5:08 AM EST 06/08/2022 6:57 AM EST us Saumya WONG LAB BLOOD BKR ORDERABLES Heather l Result Performing Organization Address [facility]/ZIP Co de Phone Number [address] [address] * BI MAMMOGRAM SCREENING WITH TOMOSYNTHESIS WITH CAD (BILATERAL) (05/13/2022 3:06 PM EST) Anatomical Region Laterality Modality Breast Left, Breast Right, Breast Bilateral Bila teral Mammography 05/13/2022 3:09 PM EST Impressions 05/13/2022 3:16 PM EST BILATERAL BREASTS: Benign, no evidence of malignancy. Recommend bilateral annual screening mammography in 12 months. Bi-RADS: BI-RADS CATEGORY: 2 - Benign finding. DENSITY: There are scattered fibroglandular densities. RIGHT RECOMMENDATION DUE DATE: 12 Months Recommendation: Right Mammography Screening LEFT RECOMMENDATION DUE DATE: 12 Months Recommendation: Left Mammography Screening Narrative 05/13/2022 3:16 PM EST STUDY: Bilateral screening mammography with tomosynthesis and CAD TECHNIQUE: Bilateral full-field digital screening mammography is obtained and read in conjunction with computer-aided detection. Tomosynthesis as well as 2-D C view imaging were obtained. COMPARISON: Comparison made to multiple prior studies dating back to December 2006. BILATERAL BREASTS: No new masses, suspicious calcifications or other abnormalities are seen. Scattered bilateral benign calcifications are noted. No significant interval change. Procedure Note Glen Artis MD - 05/13/2022 STUDY: Bilateral screening mammography with tomosynthesis and CAD TECHNIQUE: Bilateral full-field digital screening mammography is obtainedand read in conjunction with computer-aided detection. Tomosynthesis aswell as 2-D C view imaging were obtained. COMPARISON: Comparison made to multiple prior studies dating back toDecember 2006. BILATERAL BREASTS: No new masses, suspicious calcifications or otherabnormalities are seen. Scattered bilateral benign calcifications arenoted. No significant interval change. IMPRESSION: BILATERAL BREASTS: Benign, no evidence of malignancy. Recommend bilateralannual screening mammography in 12 months. Bi-RADS: BI-RADS CATEGORY: 2 - Benign finding. DENSITY: There are scattered fibroglandular densities. RIGHT RECOMMENDATION DUE DATE: 12 Months Recommendation: Right Mammography Screening LEFT RECOMMENDATION DUE DATE: 12 Months Recommendation: Left Mammography Screening Madelaine Rodriguez MD IMG MG EXAMS Final Resu lt * Pap Smear (09/23/2020 12:00 AM EDT) 09/23/2020 09/24/2020 8:4 5 AM EDT Narrative SEE NARRATIVE - 10/02/2020 11:31 AM EDT [address] [address] Level Vial Curvature Gauger: Nan Flores MD HIGHWAY MAINTAINER Cytology Report FINAL DIAGNOSIS A. PAP SMEAR (SUREPATH) CE: SPECIMEN ADEQUACY: Satisfactory for evaluation; transformation zone present. INTERPRETATION: NEGATIVE FOR INTRAEPITHELIAL LESION OR MALIGNANCY. Endometrial cells are present in a woman 45 years of age or older. Endometrial cells after age 45, particularly out of phase or after menopause, may be associated with benign endometrium, hormonal alterations, and, less commonly, endometrial/uterine abnormalities. Clinical correlation is recommended. Electronically Signed Out By: ELIEZER Dietz MD(ASCP) By his/her signature above, the pathologist listed as making the Final Diagnosis certifies that he/she has personally reviewed this case and confirmed or corrected the diagnosis. The Pap test is a screening test primarily for squamous cancers and precursors and has associated false-negative and false-positive results. New technologies such as liquid-based preparations may decrease but will not eliminate all false-negative results. Regular sampling and follow-up of unexplained clinical signs and symptoms are recommended to minimize false negative results. PROCEDURES/ADDENDA HPV Testing (Requested) Ordered Date: 09/24/2020 A. PAP SMEAR (SUREPATH) CE: Human Papilloma Virus Test Negative for high-risk human papillomavirus types 16, 18, 45 and the Other high risk probe set (Includes 31, 33, 35, 39, 51, 52, 56, 58, 59, 66, 68) by [employer] Onclarity HR-HPV analysis. Clinical correlation is advised. This HPV test was performed at [facility], [address] [place] [address]. This test has been FDA approved for SurePath cervical cytology specimens. The accuracy and precision of this test for all other specimen sources has been verified in the Cytopathology Laboratory of the [facility] and has not been cleared or approved by the U.S. Food and Drug Administration. Clinical correlation is advised. CLINICAL HISTORY Date of Last Menstrual Period: Not Provided Menstrual History: Unknown Other Clinical Conditions: Screening Pap SPECIMEN SOURCE A: PAP SMEAR (SUREPATH) CE Patient Name: RANDY IRWIN : 1970 (Age: 49) Sex: F Institution: [facility] Location: [facility] Date of Collection: 09/23/2020 Date of Reported: 10/02/2020 11:31 Results to: Madelaine Rodriguez MD Madelaine Rodriguez MD CYTOLOGY ORDERABLES Final Result SEE NARRATIVE from Last 3 Months or Most Recently Relevant to Health Maintenance Insurance HMO O O O O O Advance Directives For more information, please contact: [phone] (9AM - 5PM [facility], Monday-Monday) * Full Code (Latest Code Status on File) Date Activated Date Inactivated Comments 06/07/2022 3:59 PM Question Answer Comments Code Status Confirmed With: Patient Care Teams Police Crime Scene Technician Relationship Specialty Start Date End Date Joe Novak DO [address] [place] [phone] [email or web address] PCP - General Internal Medicine 06/20/22 Madelaine Rodriguez MD [address] [place] [phone] [email or web address] Historical LMR Provider 03/05/17 Additional Source Comments The information contained in this document represents components of the legal health record. It is not the complete legal health record.[facility]
--- OUTSIDE RECORDS SUMMARY | 2025-04-04 12:15 | XMS_ITS | Encounter Summary ---
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 Not on file Not on file documented as of this encounter Plan of Treatment Not on file documented as of this encounter Visit Diagnoses Not on filedocumented in this encounter Additional Health Concerns Infection Onset Date Last Indicated Resolved Time CoV-Risk 08/01/2023 08/01/2023 08/12/2023 1:21 AM EDT CoV-Risk 06/21/2024 06/21/2024 07/02/2024 1:21 AM EST documented as of this encounter Care Teams Senior Compensation Analyst Relationship Specialty Start Date End Date Joe Novak DO [address] [address] PCP - General 05/18/17 06/19/22 Joe Novak DO [address] [address] PCP - General Internal Medicine 06/20/22 Madelaine Rodriguez MD [address] [address] Historical LMR Provider 03/05/17 Joe Novak DO [address] [facility] [place] [address] Insurance Assigned Provider 08/19/23 11/18/23 documented as of this encounter Additional Source Comments The information contained in this document represents components of the legal health record. It is not the complete legal health record.[facility]
--- OUTSIDE RECORDS SUMMARY | 2025-04-04 12:15 | XMS_ITS | Encounter Summary ---
Author Organization [facility] Address [address] [place] [address] [place] [phone] Phone Care Team Providers Care Center Mgr Name Role Phone Madelaine Rodriguez MD Unavailable [phone] Joe Novak DO Primary Care Provider [phone] Encounter Details Date Type Department Care Team (Latest Contact Info) Description 10/23/2024 Ancillary Orders [facility] Orthopedics & Sports Medicine [address] [place] [address] Dwayne Edge PA-C [address] [place] [address] Orthopedics & Sports Medicine, [place], [place] [id number] Knee pain, bilateral (Primary Dx) Social History Tobacco Use Types [...] Date 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 Interpretation has been included in the provider encounter note for this date of service. Dwayne Edge PA-C IMG XR LOWER EXTREMITY Final Result documented in this encounter Visit Diagnoses Diagnosis Knee pain, bilateral Pain in joint, lower leg Knee pain, bilateral- Primary Pain in joint, lower leg documented in this encounter Care Teams Center Mgr Relationship Specialty Start Date End Date Joe Novak DO [address] [place] [address], [address] [place] [address] [email or web address] PCP - General Internal Medicine 06/20/22 Madelaine Rodriguez MD [address] [place] [address], [address] [place] [address] Historical LMR Provider 10/22/17 documented as of this encounter Additional Source Comments The information contained in this document represents components of the legal health record. It is not the complete legal health record.[facility]
--- OUTSIDE RECORDS SUMMARY | 2025-04-04 12:15 | XMS_ITS | Encounter Summary ---
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 file Not on file documented as of this encounter Functional Status * Calculated C-SSRS Risk Score (Lifetime/Recent) Answer Date of Assessment Author No Risk Indicated 06/07/2022 5:00 PM EST Yadira Navarrete RN * Trail Suicide Severity Rating Scale (Screener/Recent Self-Report) Question [...] documented as of this encounter Care Teams Change Management Consultant Relationship Specialty Start Date End Date Joe Novak DO [address] [address] PCP - General 05/18/17 06/19/22 Joe Novak DO [address] [place] [address] PCP - General Internal Medicine 06/20/22 Madelaine Rodriguez MD [address] [place] [address] Historical LMR Provider 03/05/17 Joe Novak DO [address] [place] [address] Insurance Assigned Provider 08/19/23 11/18/23 documented as of this encounter Additional Source Comments The information contained in this document represents components of the legal health record. It is not the complete legal health record.[facility]
--- OUTSIDE RECORDS SUMMARY | 2025-04-04 12:15 | XMS_ITS | Clinical Summary ---
Author Organization [facility] Address [address] [place] [address] Care Team Providers Care Computer Systems Technician Name Role Phone Unavailable Primary Care Provider Unavailabl e Social History Tobacco Use Types Packs/Day Years Used Date Smoking Tobacco: Never Assessed Sex and Gender Information Value Date Recorded Sex Assigned at Not on file Gender Identity Not on file Sexual Orientation Not on file Plan of Treatment Not on file
--- OUTSIDE RECORDS SUMMARY | 2025-04-04 12:15 | XMS_ITS | Encounter Summary ---
Author Organization [facility] Address [address] [place] [address] Phone Care Team Providers Care Light Industrial Name Role Phone Madelaine Rodriguez MD Unavailable [phone] Joe Novak DO Unavailable Joe Novak DO Primary Care Provider + [phone] Encounter Details Date Type Department Care Team (Late st Contact Info) Description 06/25/2022 Procedure Pass [facility], Ct Scan - [address] [address] Social History Tobacco Use Types Packs/Day Years Used Date Smoking Tobacco: Never Smokeless Tobacco: Never Alcohol Use Standard Drinks/Week Comments Not Currently 0 (1 standard drink = 0.6 oz pur e alcohol) occasional Intimate Partner Violence Answer Date R ecorded Are you denied basic needs s uch as food, clothing, or medical care? No 06/25/2022 In the past 12 months have y ou been in a relationship with a person who hurts, threatens, or tries to control you? No 06/25/2022 Are you denied basic needs s uch as food, clothing, or medical care? No 06/25/2022 In the past 12 months have y ou been in a relationship with a person who hurts, threatens, or tries to control you? 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 Wish to be (Past 1 Month) No 06/25/2022 11:24 AM Lianna Thomas RN 2. Non-Specific Active Suicidal Thoughts (Past 1 Month) No 06/25/2022 11:24 AM Lianna Thomas RN 6. Suicidal Behavior (Lifetime) No 06/25/2022 11:24 AM Lianna Thomas RN documented as of this encounter Plan of Treatment Not on file documented as of this encounter Visit Diagnoses Not on filedocumented in this encounter Additional Health Concerns Infection Onset Date Last Indicated Resolved Time CoV-Risk 08/01/2023 08/01/2023 08/12/2023 1:21 AM EDT CoV-Risk 06/21/2024 06/21/2024 07/02/2024 1:21 AM EST documented as of this encounter Care Teams Light Industrial Relationship Specialty Start Date End Date Joe Novak DO [address] [place] [address] [email or web address] PCP - General Internal Medicine 06/20/22 Madelaine Rodriguez MD [address] [address] [email or web address] Historical LMR Provider 03/05/17 Joe Novak DO [address] [place] [address] (work) [email or web address] Insurance Assigned Provider 08/19/23 11/18/23 documented as of this encounter Additional Source Comments The information contained in this document represents components of the legal health record. It is not the complete legal health record.[facility]
--- OUTSIDE RECORDS SUMMARY | 2025-04-04 12:16 | XMS_ITS | Encounter Summary ---
Author Organization [facility] Address [address] [place] [address] Phone Care Team Providers Care Handicraft Or Hobby Shop Manager Name Role Phone Madelaine Rodriguez MD Unavailable [phone] Bigda, Joe A DO Primary Care Provider [phone] Bigda, Joe A DO Unavailable Bigda, Joe A DO Primary Care Provider [phone] Encounter Details Date Type Department Care Team (Late st Contact Info) Description 04/22/2022 Procedure Pass [address] [id number] Social History Tobacco Use Types Packs/Day Years Used Date Smoking Tobacco: Never Smokeless Tobacco: Never Alcohol Use Standard Drinks/Week Comments Yes 0 (1 standard drink = 0.6 oz pur e alcohol) Comments No Sex and Gender Information Value [...] documented as of this encounter Care Teams Handicraft Or Hobby Shop Manager Relationship Specialty Start Date End Date Joe Novak DO [address] [address] PCP - General 05/18/17 06/19/22 Joe Novak DO [address] [address] PCP - General Internal Medicine 06/20/22 Madelaine Rodriguez MD [address] [address] Historical LMR Provider 03/05/17 Joe Novak DO [address] [place] [address] Insurance Assigned Provider 08/19/23 11/18/23 documented as of this encounter Additional Source Comments The information contained in this document represents components of the legal health record. It is not the complete legal health record.[facility]
--- OUTSIDE RECORDS SUMMARY | 2025-04-04 12:16 | XMS_ITS | Encounter Summary ---
Author Organization [facility] Address [address] [facility] [address] [place] [address] Phone Care Team Providers Care County Agent Name Role Phone Madelaine Rodriguez MD Unavailable [phone] Joe Novak DO Primary Care Provider [phone] Encounter Details Date Type Department Care Team (Late st Contact Info) Description 04/05/2024 Transcribe Orders Virtual Department [address] [place] [address] Joe Novak DO [address] [facility] [place] [address] [place] [address] [email or web address] Breast screening (Primary Dx) Social History Tobacco Use Types [...] 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 file documented as of this encounter Plan of Treatment Scheduled Orders Name Type Priority Associated Diagnoses Orde r Schedule Mammogram Screening (Bilateral) Imaging Routine Breast screening Expected: 05/05/2024, Expires: 04/05/2025 documented as of this encounter Visit Diagnoses Diagnosis Breast screening- Primary Breast screening, unspecified documented in this encounter Additional Health Concerns Infection Onset Date Last Indicated Resolved Time CoV-Risk 06/21/2024 06/21/2024 07/02/2024 1:21 AM EST documented as of this encounter Care Teams County Agent Relationship Specialty Start Date End Date Joe Novak DO [address] [place] [address] PCP - General Internal Medicine 06/20/22 Madelaine Rodriguez MD [address] [place] [address], [address] [address] Historical LMR Provider 03/05/17 documented as of this encounter Additional Source Comments The information contained in this document represents components of the legal health record. It is not the complete legal health record.[facility]
--- OUTSIDE RECORDS SUMMARY | 2025-04-04 12:16 | XMS_ITS | Encounter Summary ---
Author Organization [facility] Address [address] [place] [address] Phone Care Team Providers Care Order Packer Name Role Phone Scarlet Joe Rojas DO Unavailable Nicolle Bansal PADDED PRODUCTS INSPECTOR TRIMMER Unavailable [phone] Keila Jim PADDED PRODUCTS INSPECTOR TRIMMER Unavailable [phone] Madelaine Rodriguez MD Unavailable [phone] Oralia Pastor NP Unavailable [phone] Nan Portillo MD Unavailable [phone] Bignorth, Joe Rojas DO Primary Care Provider [phone] BigdaJoe DO Unavailable Bigda, Joe Rojas DO Primary Care Provider [phone] Encounter Details Date Type Department Care Team (Late st Contact Info) Description 06/01/2017 Transcribe Orders [facility]le[facility] [address] [place] [address] Joe Novak DO [address] [facility] [place] [address] Diabetes mellitus of other type with complication, unspecified rat exterminator insulin use status (Primary Dx) Social History Tobacco Use Types [...] on file documented as of this encounter Procedures Procedure Name Priority Date/Time Associated Diagnosis Comments HEMOGLOBIN A1C Routine 06/01/2017 11:43 AM EST Diabetes mellitus of other type with complication, unspecified care home insulin use status documented in this encounter Results * (ABNORMAL) Hemoglobin A1c (06/01/2017 11:43 AM EST) HEMOGLOBIN A1C 8.7(H) 4.3 - 5.8 % [facility] Blood 06/01/2017 11:4 3 AM EST 06/01/2017 11:47 AM EST us Joe Novak DO LAB BLOOD BKR ORDERABLES Final R esult Performing Organization Address City/State/[facility] Co de Phone Number [address] [address] documented in this encounter Visit Diagnoses Diagnosis Diabetes mellitus of other type with complication, unspecified care home insulin use status- Primary documented in this encounter Additional Health Concerns Infection Onset Date Last Indicated Resolved Time CoV-Risk 08/01/2023 08/01/2023 08/12/2023 1:21 AM EDT CoV-Risk 06/21/2024 06/21/2024 07/02/2024 1:21 AM EST documented as of this encounter Care Teams Order Packer Relationship Specialty Start Date End Date Joe Novak DO [address] [employer] [address] [address] PCP - General 05/18/17 06/19/22 Joe Novak DO [address] [employer] [address] [address] PCP - General Internal Medicine 06/20/22 Joe Novak DO [address] [place] [address] Historical LMR Provider 03/05/17 05/22/21 Nicolle Bansal, PADDED PRODUCTS INSPECTOR TRIMMER [address] [place] [address] [email or web address] Historical LMR Provider 03/05/17 2 Keila Jim NP [address] [place] [address] Historical LMR Provider 03/05/17 2 Madelaine Rodriguez MD [address] [place] [address] Historical LMR Provider 03/05/17 Oralia Pastor NP [address] [place] [address] Historical LMR Provider 03/05/17 2 Nan Portillo MD [address] [place] [address] [email or web address] Historical LMR Provider 03/05/17 05/22/21 Joe Novak DO [address] [place] [address] Insurance Assigned Provider 08/19/23 11/18/23 documented as of this encounter Additional Source Comments The information contained in this document represents components of the legal health record. It is not the complete legal health record.[facility]
--- OUTSIDE RECORDS SUMMARY | 2025-04-04 12:16 | XMS_ITS | Data Portability ---
Author Organization [facility], Telehealth Patient Home Address [address] [place] [address] Assessment No assessment recorded. Plan of Treatment Reminders Order Date Submit Date Provider Last Modified By Organization Details Last Modified Time Details Appointments FOLLOW UP 15 2024 04:15P MARVIN STEIN Not available Not available Not available Lab hemoglobi n A1c, QN, blood 2024 025 [facility], [address] [place] [address], [id number], 09/09/2024 16:23:31 CMP, serum or plasma 2024 025 [facility], [address] [place] [address], [id number], 09/09/2024 16:23:31 CBC w/ auto diff 2024 025 [facility], [address] [place] [address], [id number], 09/09/2024 16:23:31 CMP, serum or plasma 2024 025 [facility], [address] [place] [address], [id number], 06/04/2024 16:54:00 Referral None recorded. Procedures None recorded. Surgeries None recorded. Imaging None recorded. Medication Orders clobetaso l 0.05 % topical ointment 20[address] [facility]/Pharmacy #[id number], [address] [place], [id number], 08/06/2024 16:18:01 Mounjaro 10 mg/0.5 mL subcutane ous pen injector 2024 025 [facility]/Pharmacy #5, [address] [place], [id number], 12/09/2024 17:24:26 Patient TargetsNo targets recorded. Patient InstructionsNo instructions recorded. Reason for Referral None Reported. Results Created Date Observation Date Name Description Value Unit Range Abnormal Flag Note LastModifiedBy Organization Detail LastModifiedTime 05/09/20 24 05/09/2024 amado ALVAREZ bilat eral No observ ation record ed. [facility] [address] [facility] [address], [place], [address], 06/04/2024 16:11:33 Result Notes None recorded. Problems Name Problem SNOMED Code Status Onset Date Resolution Date Notes Provider Name and Address Organization Details Recorded Time Polycysti c ovaries Active 2017 Not Available [facility] 3 15:48:21 Type 2 diabetes mellitus 00090184 Active 2017 Not Available [facility] 3 15:48:21 Hypertens lorenzo disorder 55579017 Active 2017 Not Available [facility] 3 15:48:21 Uric acid renal calculus 172832820 Active 2017 Not Available [facility] 3 15:48:21 Environme ntal allergy 704595431 Active 2017 Not Available [facility] 3 15:48:21 Adult lichen sclerosus 274411318 Active 2017 vulva Not Available [facility] 15:48:21 Rathke's pouch cyst 94668386 Active 2017 Not Available [facility] 15:48:21 Moderate recurrent major depressio n 19451810 Active 2018 Not Available [facility] 15:48:21 Essential hypertens ion 75752026 Active 2021 Not Available [facility] 3 15:48:21 Burn of skin 358105016 Active 2022 Not Available [facility] 3 15:48:21 Transient visual loss 29044630 Active 2022 Not Available [facility] 3 15:48:21 Diarrhea 77479514 Active 2022 Not Available [facility] 3 15:48:21 Migraine 13372096 Active 2022 Not Available [facility] 3 15:48:21 Disorder of pituitary gland 333770412 Active 2023 MARVIN KATHLEEN [address] [place], [address], [facility] 4 16:17:48 Depressiv e disorder 00870923 Active 2023 MARVIN KATHLEEN [address] [place], [address], [facility] 4 16:33:02 Hirsutism 270813430 Active 2023 MARVIN KATHLEEN [address] [place], [address], [facility] 4 16:09:03 Hypokalem ia 52917568 Active 2024 MARVIN KATHLEEN [address] [place], [address], [facility] 5 16:47:10 Mild dehydrati on 371548021971 8 Active 2024 MARVIN KATHLEEN [address] [place], [address], [facility] 5 15:52:05 Lichen sclerosus of vulva 675256627 Active 2024 MARVIN KATHLEEN [address] [place], [address], [facility] 5 16:13:32 Allergic rhinitis caused by pollen 31961167 Active 2024 MARVIN KATHLEEN [address] [facility], [place], [address], [facility] 5 16:23:25 Notes:Some problems listed i n Document: #[id number] could not be added to this patient's chart. Please review this document and add these problems to the patient's chart manually as needed. Problem Notes None recorded. Medical Equipment None Reported. [...] Not Available atorvasta tin 10 mg tablet TAKE 1 TABLET BY MOUTH EVERY DAY 2024 active Not Available Not Available Not Avai [...] 100 mg tablet 2 tablets po qd 2024 active Not Available Not Available Not Avai [...] l 10 mg tablet 1 po qd 2024 active Not Available Not Available Not Avai lable glimepiri de 4 mg tablet TAKE 0.5 TABLET BY MOUTH EVERY DAY FROM HOSPITAL 06/15 completed Not Available Not Available Not Available Keppra 750 mg tablet Take 1 tablet twice a day by oral route. 06/15 completed Not Available Not Available Not Available allopurin ol 300 mg tablet TAKE 1 TABLET BY MOUTH EVERY DAY 2024 active Not Available Not Available Not Avai lable clobetaso l 0.05 % topical ointment APPLY A THIN LAYER TO THE AFFECTED AREA(S) TWICE WEEKLY 2024 active Not Available Not Available Not Avai lable ondansetr on 4 mg disintegr ating tablet [...] Not Available Not Available Not Available FreeStyle Sraa 14 Day Haskins test as directed 01/24 completed Not Available Not Available Not Available OneTouch Delica Plus Lancet 33 gauge USE TO CHECK BLOOD SUGARS 5X DAILY 09/13 completed Not Available Not Available Not Available OneTouch Verio Reflect Meter USE TO CHECK BLOOD SUGARS 5X DAILY NOT COVERED BY [facility] E 05/04 completed Not Available Not [...] by subcutan eous route for 30 days. 08/19 completed on the 10 mg Not Available Not Available Not Available Mounjaro 5 mg/0.5 mL subcutane ous pen injector INJECT 5 MG SUBCUTAN EOUSLY WEEKLY 06/04 completed Not Available Not Available Not Available Mounjaro 15 mg/0.5 mL subcutane ous pen injector INJECT (15MG) BY SUBCUTAN EOUS ROUTE EVERY WEEK 09/14 completed STOPPED IN JULY - S Not Available Not Available Not Available Mounjaro 10 mg/0.5 mL subcutane ous pen injector inject 10 mg SC every week 2024 active Not Available Not Available Not Avai sarah Mounjaro 12.5 mg/0.5 mL subcutane ous pen injector INJECT 0.5ML SUBCUTAN EOUSLY EVERY WEEK X 4 WEEKS THEN INCREASE TO 15MG DOSE 06/15 completed Not Available Not Available Not Available Mounjaro 2.5 mg/0.5 mL subcutane ous pen injector INJECT 2.5 MG SUBCUTAN EOUSLY WEEKLY *PA DENIED* 04/29 completed Not Available Not Available Not Available Dexcom G7 Sensor device USE TO CHECK BLOOD SUGARS CONTINUO SLY, CHANGE EVERY 10 DAYS. 09/13 completed Not Available Not Available Not Available Ozempic 0.25 mg or 0.5 mg (2 mg/3 mL) subcutane ous pen injector INJECT 0.25MG UNDER THE SKIN ONCE WEEKLY 04/29 completed Not Available Not Available Not Available Vitals Date Recorded Body height Heart rate Oxygen saturation Systolic And Diastolic Provider Name and Address Organization Details Last Updated DateTime 06/04/2024 172.72 cm 74 /min 98 % 122/82 mm[Hg] Ifrah Bang [facility] 06/04/2024 16:06:40 Date Recorded Body height Body mass index (BMI) Body weight Heart rate Oxygen saturation Systolic And Diastolic Provider Name and Address Organization Details Last Updated DateTime 172.72 cm 42.5 kg/m2 996895. 71 g 85 /min 97 % 128/82 mm[Hg] Ifrah Bang [facility] 15:39:53 Date Recorded Body height Body mass index (BMI) Body weight Systolic And Diastolic Provider Name and Address Organization Details Last Updated DateTime 08/06/2024 172.72 cm 42.4 kg/m2 208911.27 g 138/80 mm[Hg] Amy Feliz [facility] 08/06/2024 16:08:00 Date Recorded Body height Body mass index (BMI) Body weight Heart rate Oxygen saturation Systolic And Diastolic Provider Name and Address Organization Details Last Updated DateTime 5 172.72 cm 43.8 kg/m2 682235. 32 g 92 /min 98 % 118/78 mm[Hg] Ifrah Bang [facility] Internal [facility] 5 16:02:05 Date Recorded Body height Body mass index (BMI) Body weight Heart rate Oxygen saturation Systolic And Diastolic Provider Name and Address Organization Details Last Updated DateTime 5 172.72 cm 43.5 kg/m2 400282. 42 g 101 /min 98 % 136/80 mm[Hg] Amy Feliz [facility] 5 16:29:01 Social History Question Answer Notes LastModified by Organizat ion Details LastModified Time Tobacco Smoking Status Never Smoker Radha bustos [facility] 09/29/2017 12:35:23 What Was The Date Of Your Most Recent Tobacco Screening? 12/09/2024 [email or web address] Information not available 12/09/2024 Sex: Unknown Functional Status Question Answer Note LastModified by Organization D etails LastModified Time Do you or have you ever used any other forms of tobacco or nicotine? No [email or web address] Information not available 06/09/2023 Mental Status None recorded. Family History Relationship Description Onset Age of this Age Resolved Age Notes LastModified by Organization Details LastModified Time Mother Malignant neoplasm of transverse colon [email or web address] Not available 2020 15:34:32 Medical History No medical history recorded. Gynecological HistoryNo gynecological history recorded. Obstetrics History GPAL:G 0 P 0 0 0 0 Immunizations Vaccine Type Date Status Note Provider Nam e and Address Organization Details Recorded Time COVID-19, mRNA, LNP-S, PF, 100 mcg/0.5mL dose or 50 mcg/0.25mL dose 1 completed Zuleika bustos [facility] 06/09/2023 15:57:34 Influenza, split virus, quadrivalent, preservative 1 completed Zuleika Gencarelle [facility] 06/09/2023 15:57:34 Influenza, split virus, quadrivalent, preservative 8 [facility] 15:57:34 [facility] [address] [facility]/01/2019 14:56:29 Influenza, split virus, quadrivalent, preservative 0 completed Zuleika Gencarelle [facility] 06/09/2023 15:57:34 COVID-19, mRNA, LNP-S, PF, 100 mcg/0.5mL dose or 50 mcg/0.25mL dose 1 completed Zuleika Gencarelle [facility] 06/09/2023 15:57:34 COVID-19, mRNA, LNP-S, PF, 100 mcg/0.5mL dose or 50 mcg/0.25mL dose 1 completed Zuleika Gencarelle [facility] 06/09/2023 15:57:34 Past Encounters Encounter ID Performer Location Encounter Start Date Encounter Closed Date Diagnosis/Indication Diagnosis SNOMED-CT Code Diagnosis ICD10 Code Diagnosis IMO Codes Diagnosis Note [id number] [facility] [address] [facility], [place] [address] 09/29/2017 12:09:19 09/29/2017 16:09:18 Hypertensive disorder 75383155 I10 here for eval and still remaining stable Type 2 wilner betes mellitus 79791835 E11.9 a1c is needed and pt has standing order she agrees shes been bad [id number] Joe Novak [facility] [address] [facility], [place] [address] 12/15/2017 09:15:46 12/15/2017 14:02:34 Type 2 diabetes mellitus 30140590 E11.9 needs a1c and is actually doing better with eating no major problems is watching closely her po intake but still eats too late long discuss re eating well Hypertensive disorder 38 881145 I10 here for eval and still remaining stable [id number] Joe Novak DO [facility] Internal Medicine [address] [facility] [address] [address] 03/28/2018 16:20:52 03/30/2018 13:43:42 Type 2 diabetes mellitus 79083818 E11.9 a1c is poor and is actually doing worse with eating no major problems other than stress is watching closely her po intake but still eats too late long discuss re eating well Hypertensive disorder 38 189199 I10 here for eval and still remaining stable Seasonal a ffective disorder 249026592 F33.9 get sun lamp will follow Gout 13683987 M10.9 [id number] Joe Novak [facility] Medicine [address] [facility] [address] [address] 04/27/2018 15:59:19 04/27/2018 16:21:24 Hypertensive disorder 04199985 I10 here for eval and still remaining stable Type 2 wilner betes mellitus 14039978 E11.9 a1c is poor and we are waiting to see if new dist will help no major problems other than stress is watching closely her po intake long discuss re eating well is now exercising [id number] Joe Novak DO [facility] Medicine [address] [facility] [address] [address] 07/10/2018 16:11:36 07/10/2018 16:48:04 Type 2 diabetes mellitus 51783354 E11.9 a1c is pending long discuss re eating well is now exercising up until the last month and she has noted that with the onset of her stress she stopped exercising and stopped eating well Uric acid renal calculus 452223694 N20.0 stable and is without an issue Hypertensive disorder 38 869993 I10 here for eval and still remaining stable Dysmenorrhea 204248036 N 94.6 Amenorrhea 14134209 N91. 2 [id number] Joe Novak [facility] [address] [facility] [address] [address] 10/23/2018 15:24:33 10/23/2018 16:18:51 Type 2 diabetes mellitus 18357838 E11.9 9.6,( 8.6 this winter), (9.5 last fall) she is always forgetting to take the second metformin always. she promises to take the second dose of metformin Told pt she NEEDS INSULIN BUT SHE REFUSES will see her in two months with an a1c Hypertensive disorder 38 708210 I10 here for eval and still remaining stable [id number] Joe Novak [facility] [address] [facility],[place] [address] 01/01/2019 14:38:48 01/01/2019 16:01:49 Type 2 diabetes mellitus 89219564 E11.9 now 9.1 was 9.6,( 8.6 this winter), (9.5 last fall) she is still forgetting to take the second metformin . still promises to take the second dose of metformin Told pt she NEEDS INSULIN BUT SHE REFUSES will see her in 3 months with an a1c Hypertensive disorder 38 159129 I10 here for eval and still remaining stable will try stopping the amlodipine 1 week before next visit to see if she really needs this [id number] Joe Novak [facility] Medicine [address] [facility], [place] [address] 01/30/2019 10:54:56 01/30/2019 12:08:57 Type 2 diabetes mellitus 70220096 E11.65 not well controlled Hypertensive disorder 38 805669 I10 somewhat elevated today Seasonal a ffective disorder 509515621 F33.9 takes sertraline year round Otitis media 69216772 H6 6.93 [id number] Joe Novak [facility] Medicine [address] [place] [address], [place] [address] 06/17/2019 14:57:07 06/17/2019 15:59:46 Diabetes mellitus 52665224 E13.8 will try a1c in 2-3mo and see if it comes down will offer trulicity as she refuses insulin she will consider [id number] Joe Novak [facility] [address] [facility], [place] [address] 08/28/2019 08:42:39 08/28/2019 16:18:33 Type 2 diabetes mellitus 64751773 E11.9 awaiting a1c pt states she is now taking second dose of metformin feels sugars are better but awaiting lab from this morning Hypertensive disorder 38 620737 I10 will be getting the bp checked at work and will report results we are not sure if she tried stopping the amlodipine as we have no way of checking her bp due to quarantine will attempt another time and in the meantime will cont meds as before [id number] Joe Novak DO [facility] Internal Medicine [address] [facility] [address] [address] 09/11/2019 08:57:35 09/11/2019 13:39:20 Hypertensive disorder 97604197 I10 will be getting the bp checked at work and will report results we are not sure if she tried stopping the amlodipine as we have no way of checking her bp due to quarantine will attempt another time and in the meantime will cont meds as before Type 2 wilner betes mellitus 15958760 E11.9 poor controll has not started on trulicity yet will have her start collecting glucose readings [id number] Joe Novak DO [facility] Medicine [address] [facility] [address] [address] 12/24/2019 13:56:52 12/24/2019 14:27:14 Otitis externa of left ear 8777192723 495931 H60.92 most likely swimmer's ear will treat for 5 to 7 days, if not better by 5 extend out to 7 if not better after a week call office for recheck Otitis media 59012104 H6 5.02 fluid build up in TM due to swimming [id number] Joe Novak DO [facility] Internal Medicine [address] [facility] [address] [address] 05/18/2020 16:05:09 05/18/2020 17:00:15 Hypertensive disorder 19004682 I10 bps are stable and is doing ok here ;;; Type 2 wilner betes mellitus 46081012 E11.9 poor controll has not started on trulicity yet a1c 9.4 was >10 and she is trying hard still only taking metformin once a day not taking twice a day she is staying on the trulicity will have her start collecting glucose readings has had dm eye exam in summer doing ok [id number] Joe Novak DO [facility] Internal Medicine [address] [facility] [address] [address] 09/07/2020 15:45:57 09/07/2020 16:20:09 Type 2 diabetes mellitus 84843168 E11.9 long detailed discussion re good diet [...] in summer doing ok Hypertensive disorder 38 902737 I10 bps are stable and is doing ok here ;;; [id number] Joe Novak [facility] Medicine [address] [facility], [address] [place] [facility] [address] 01/04/2021 15:24:10 01/04/2021 16:02:21 Type 2 diabetes mellitus 81269809 E11.9 long detailed discussion re good diet [...] in summer doing ok Hypertensive disorder 38 790122 I10 bps are stable and is doing ok here ;;; Diabetes mellitus 182102 09 E13.8 will try a1c in 2-3mo and see if it comes down will offer trulicity as she refuses insulin she will consider Seasonal a ffective disorder 754326331 F33.9 get sun lamp will follow [id number] Joe Novak DO [facility] Internal Medicine [address] [facility],[place] [address] 02/08/2021 09:32:51 02/08/2021 15:04:57 Type 2 diabetes mellitus 12910723 E11.9 is poorly comliant even with trulicity [...] in summer doing ok Hypertensive disorder 38 888394 I10 bps are stable and is doing ok here ;;; [id number] Joe Novak [facility] Medicine [address] [facility] [address] [address] 04/06/2021 15:27:13 04/06/2021 16:14:17 Hypertensive disorder 21935400 I10 bps are stable and is doing ok here ;;; Type 2 wilner betes mellitus 88282110 E11.9 is poorly comliant even with trulicity [...] [place] eye exam [place] [id number] Joe Novak [facility] Medicine [address] [facility] [address] [address] 08/04/2021 08:54:57 08/06/2021 15:04:13 Diabetes mellitus 21057624 E13.8 will try a1c in 2-3mo and see if it comes down will offer trulicity as she refuses insulin she will consider Seasonal a ffective disorder 588160823 F33.9 get sun lamp will follow Type 2 wilner betes mellitus 70997834 E11.9 is poorly comliant even with trulicity [...] ok Viral amparo roenteritis caused by Rotavirus 509828033 A08.0 she janet cont with clear liquids and i will phone in some zofran [id number] Joe Novak [facility] Medicine [address] [facility],[place] [address] 01/24/2022 15:13:08 01/24/2022 16:20:52 Type 2 diabetes mellitus 11160081 E11.9 is poorly comliant even with trulicity [...] in summer doing ok Hypertensive disorder 38 614938 I10 bps are stable and is doing ok here ;;; [id number] Jeo Novak DO [facility] Internal Medicine [address] [facility], [place] [address] 05/04/2022 08:55:54 05/06/2022 10:48:27 Hypertensive disorder 86088315 I10 bps are stable and is doing ok here ;;; Type 2 wilner betes mellitus 82917915 E11.9 she is finaly doing well using the dexcom now and the mounjaro as well as down on the lantus to 15so she is staying with them at [facility] and doing well [id number] Joe Novak [facility] Internal Medicine [address] [facility] [address] [address] 06/15/2022 08:15:20 06/17/2022 14:23:41 Type 2 diabetes mellitus 08748972 E11.9 excellent control currently Rathke's pouch cyst 5285 9009 E23.6 eval unremarkab le per guidelines we do not have to fu with further eval Transient visual loss 36 648060 H53.121 possible aura vs ocular migraine? [id number] Joe Novak [facility] Internal Medicine [address] [facility] [address] [address] 07/06/2022 11:16:50 07/08/2022 10:21:28 Transient visual loss 37077280 H53.121 possible aura vs ocular migraine? Type 2 wilner betes mellitus 85226181 E11.9 excellent control currently Migraine 25737930 G43.00 9 will be seeing both neuro and cardiology [id number] Joe Novak [facility] Internal Medicine [address] [facility] [address] [address] 07/27/2022 08:57:29 07/29/2022 16:31:36 Essential hypertension 43822932 I10 stable today Migraine 89771574 G43.00 9 will monitor [id number] Joe Novak [facility] Internal Medicine [address] [facility] [address],[place] [address] 09/13/2022 09:29:42 09/13/2022 13:49:14 Moderate recurrent major depression 22000190 F33.1 stable Hypertensive disorder 38 045071 I10 stable Type 2 wilner betes mellitus 86647830 E11.9 will be restarting mounjaro and dexcom Essential hypertension 70932071 I10 stable today Diabetes mellitus 572617 09 E13.8 will cont med and restart dexcom [id number] Joe Novak [facility] Internal Medicine [address] [facility] [address],[place] [address] 11/21/2022 15:25:45 11/22/2022 08:03:44 Type 2 diabetes mellitus 30602966 E11.9 will be restarting mounjaro and dexcomneed s lab work restarted Essential hypertension 78842489 I10 excellent today [id number] Joe Novak [facility] Internal Medicine [address] [facility] [address] [facility] [place] [address] 03/10/2023 16:14:08 03/10/2023 16:51:26 Type 2 diabetes mellitus 43490399 E11.9 will be restarting mounjaro and dexcomneed s lab work restarted Essential hypertension 17522793 I10 excellent today Moderate r ecurrent major depression 18660320 F33.1 stable [id number] Joe Novak [facility] Medicine [address] [facility] [address] [address] 06/09/2023 15:57:20 06/12/2023 09:19:42 Disorder of pituitary gland 245349908 E23.6 stable Type 2 wilner betes mellitus 19922504 E11.9 doing well Depressive disorder 3548 9007 F33.9 stable Depressive disorder 3548 9007 F33.1 Uric acid renal calculus 076085842 N20.0 will recheck levels Screening mammography 24 218484 Z12.31 will set up with M [id number] Joe Novak [facility] [address] [facility] [address] 09/15/2023 16:07:33 09/18/2023 08:18:56 Depression screening 660124866 Z13.31 stable Type 2 wilner betes mellitus 31014308 E11.9 will set up wt Diabetes mellitus 506419 09 E13.8 will cont med and restart dexcom [id number] Joe Novak [facility] Internal Medicine [address] [facility] [address],[place] [address] 10/13/2023 13:54:15 10/16/2023 08:54:22 Type 2 diabetes mellitus 44973125 E11.9 will set up wt Hypertensive disorder 38 860101 I10 stable [id number] Joe Novak [facility] Internal Medicine [address] [facility] [address] [address] 11/06/2023 15:42:47 11/07/2023 07:45:40 Depression screening 456931323 Z13.31 stable Type 2 wilner betes mellitus 36753464 E11.9 send in [employer] says it is approvedwi ll check with insurance [id number] Joe Novak [facility] Internal Medicine [address] [facility] [address] [address] 04/29/2024 15:33:17 04/29/2024 16:24:53 Type 2 diabetes mellitus 70418791 E11.9 send in [employer] says it is approvedwi ll check with insurance Essential hypertension 55386734 I10 excellent today Hirsutism 727320168 L68. 0 will keep an eye on her potassium [id number] Joe Novak [facility] Internal [facility] [address] [facility] [address] [address] 06/04/2024 15:40:21 06/04/2024 16:51:31 Type 2 diabetes mellitus 46370073 E11.9 doing great back on the [facility] Hypokalemia 95856225 E87 .6 [id number] Joe Novak [facility] Internal Medicine [address] [facility] [address] [address] 07/10/2024 15:31:06 07/10/2024 16:51:37 Essential hypertension 11918048 I10 excellent today Type 2 wilner betes mellitus 20477363 E11.9 dropping back down Diarrhea 37343624 R19.7 resolved with adjusting dose back down Bereavement 01065838 Z63 .4 working with her therapist, seeing her twice a week Mild dehydration 1070778 119 108 E86.0 Depressive disorder 3548 9007 F33.1 [id number] Joe Novak [facility] Internal Medicine [address] [facility] [address] [address] 08/06/2024 16:01:14 08/06/2024 16:44:07 Lichen sclerosus of vulva 196866055 N90.4 will set up with clobetasol Type 2 wilner betes mellitus 60944806 E11.9 trial the 10 mg Essential hypertension 40731353 I10 excellent today [id number] Joe Novak [facility] Internal Medicine [address] [facility] [address] 09/09/2024 15:54:20 09/09/2024 16:30:14 Depression screening 488739656 Z13.31 stable Essential hypertension 46468736 I10 excellent today, hold the spironolac toneneeds lab work when she checks it Type 2 wilner betes mellitus 59410582 E11.9 stable, no side effectsgiv en update lab work Allergic r hinitis caused by pollen 50131330 J30.1 21688705 suggested pataday for her eyes [id number] Joe Novak [facility] Internal Medicine [address] [facility] [address] 12/09/2024 16:08:52 12/10/2024 08:28:45 Depression screening 742030832 Z13.31 stable Hypertensive disorder 38 119212 I10 stable Type 2 wilner betes mellitus 18026557 E11.9 stable, no side effectsgiv en update lab work Health Concerns Section Related Observation LastModified by Organization Detai ls LastModified Time None Recorded Concern Status LastModified by Organization Details LastModified Time None Recorded Advance Directives Directive None Recorded Payers Insurance Date Sequence Insurance Name Policy Number Policy Chavez Covered Member ID Chavez Member ID Guarantor Name 04/04/2025 1 [facility] [id number] Lesli Neely [id number] Lesli Neely 04/04/2025 1 [facility] [id number] Lesli Neely [id number] Lesli Neely 09/29/2017 1 *SELF PAY* Do joycea Anisak 04/04/2025 1 [facility] [id number] Lesli Langek [id number] Lesli Neely Notes Date Note Type Note Provider Name and Address Organization Details Recorded Time 5 text/htm l ROS as noted in the HPI 1 mos f/u T2DM: doing much better [...] she is feeling better MARVIN KATHLEEN [address] [place], [address], [facility] Internal Medicine 06/04/2024 16:48:28 5 text/htm l ROS as noted in the HPI 1 mos + ER fu Patient presents today for follow-up for Type 2 Diabetes Recent lab showed an A1c of 7.3%, lower than previous 7.7%patient cannot tolerate the higher doses of mounjaro, with the increase to 10 mg she developed significant diarrhea, nausea and vomiting episodes reduced dose back down to 7.5 mg The patient has been compliant with medicationsThe complications patient is experiencing are reaction to higher dose, has happened in the past, will be unable to titrate past 7.5 mg going forwardThe patient has current concerns about related to their diabetes diagnosis possible elevation of a1c due to inability to go higher on mounjaro, does not respond to other medications including insulin which she had been dealing with through the [facility], unable to f/u with them due to her insurance changeThe patient has been compliant with lifestyle changes including dietary changes, exercise and healthy habitsvery active, patient swims Discussion about feet revealsDiscussion about eyes reveal Treatment plan going forward is MARVIN KATHLEEN [address] [place], [address], [facility] Internal Medicine 07/10/2024 16:09:36 5 text/htm l ROS as noted in the HPI 1 mos lichen sclerosus: the patient reports she ended up going back up to the 10 mg since she ran out of itKoalify que up, trying to get back to the [employer] patient is doing wellhad to use the 10 mg because she ran out of the 7.5 mg mounjaro, hasn't noticed her issues on it yet but will keep me up to date patient will update me tomorrow/ilene the patient is otherwise doing well mood has improved, is getting past the of her dad with the help of her MARVIN KATHLEEN [address] [place], [address], [facility] Internal Medicine 08/06/2024 16:28:43 5 text/htm l ROS as noted in the HPI 1 mos f/u T2DM: Patient presents today for follow-up for Type 2 Diabetes Recent lab showed an A1c of 7.2% (from June) The patient has been compliant with medications, able to tolerate the mounjaroThe patient denies any complications at this timeThe patient has current concerns about related to their diabetes diagnosisThe patient has been compliant with lifestyle changes including dietary changes, exercise and healthy habits Discussion about feet reveals normal exam, normal digital hair loss, vascular looks good, no neuropathyDiscussion about eyes reveal normal exam Treatment plan going forward is continue on the mounjaro, the 10 mg worked out fine this time, no issues MARVIN KATHLEEN [address] [place], [address], [facility] Internal Medicine 09/09/2024 16:26:05 5 text/htm l ROS as noted in the HPI 1 mos f/u HTN: today in the office the patient BP is 136/80 L armthe patient is doing well on the BP medication with no side effects and no adjustment of their medications needed [facility] ed on medicationdenies chest pain, sob, ankle swelling, orthopnea, palpitations T2DM: her A1c has been stablewas able to get the mounjaro filled, did cause some issues with unit amount MARVIN KATHLEEN [address] [place], [address], [facility] Internal Medicine 12/09/2024 17:30:39 OBGyn Episode No OBEpisode recorded.
--- OUTSIDE RECORDS SUMMARY | 2025-04-04 12:16 | XMS_ITS | Encounter Summary ---
Author Organization [facility] Address 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 on file Not on file Not on file documented as of this encounter Functional Status * Calculated C-SSRS Risk Score (Lifetime/Recent) Answer Date of Assessment Author No Risk Indicated 06/07/2022 5:00 PM EST Yadira Navarrete, RN * Brooks Suicide Severity Rating Scale (Screener/Recent Self-Report) Question [...] documented as of this encounter Care Teams Ocean Forwarder Relationship Specialty Start Date End Date Joe Novak DO [address] [address] PCP - General 05/18/17 06/19/22 Joe Novak DO [address] [address] PCP - General Internal Medicine 06/20/22 Madelaine Rodriguez MD [address] [address] Historical LMR Provider 03/05/17 Joe Novak DO [address] [place] [phone] Insurance Assigned Provider 08/19/23 11/18/23 documented as of this encounter Additional Source Comments The information contained in this document represents components of the legal health record. It is not the complete legal health record.[facility]
--- OUTSIDE RECORDS SUMMARY | 2025-04-04 12:16 | XMS_ITS | Encounter Summary ---
Author Organization [facility] Address [address] [place] [address] Phone Care Team Providers Care Doll Eye Setter Name Role Phone Joe Novak DO Unavailable Nicolle Bansal M[employer]I TOWNSHIP ASSESSOR Unavailable [phone] Keila Jim M[employer]I TOWNSHIP ASSESSOR Unavailable [phone] Madelaine Rodriguez MD Unavailable [phone] Oralia Pastor NP Unavailable [phone] Nan Portillo MD Unavailable [phone] Bignorth, Joe Rojas DO Primary Care Provider [phone] BigJoe kat Crystal DO Unavailable Bignorth, Joe A DO Primary Care Provider [phone] Encounter Details Date Type Department Care Team (Late st Contact Info) Description 09/23/2020 Procedure Pass [facility], [address] [address] Social History Tobacco Use Types Packs/Day Years Used Date Smoking Tobacco: Never Smokeless Tobacco: Never Alcohol Use Standard Drinks/Week Comments No 0 (1 standard drink = 0.6 oz [...] documented as of this encounter Care Teams Doll Eye Setter Relationship Specialty Start Date End Date Joe Novak DO [address] [address] PCP - General 05/18/17 06/19/22 Joe Novak DO [address] [address] PCP - General Internal Medicine 06/20/22 Joe Novak DO [address] [place] [address] Historical LMR Provider 03/05/17 05/22/21 Nicolle Bansal M[employer] TOWNSHIP ASSESSOR [address] [place] [address] [email or web address] Historical LMR Provider 03/05/17 2 Keial Jim NP [address] [place] [address] Historical LMR Provider 03/05/17 2 Madelaine Rodriguez MD [address] [address] Historical LMR Provider 03/05/17 Oralia Pastor NP [address] [place] [address] Historical LMR Provider 03/05/17 2 Nan Portillo MD [address] [place] [address] [email or web address] Historical LMR Provider 03/05/17 05/22/21 Joe Novak DO [address] [place] [address] [email or web address] Insurance Assigned Provider 08/19/23 11/18/23 documented as of this encounter Additional Source Comments The information contained in this document represents components of the legal health record. It is not the complete legal health record.[facility]
[2025-04-04 18:29] LABS: MANUAL DIFF FLAG NO
[2025-04-04 18:42] LABS: Hematocrit 43.5 % (37.0-47.0); Hemoglobin 14.1 g/dl (12.0-16.0); Imm Gran Abs Auto 0.02 X10*3/uL (0.00-0.03); Imm Gran Pct Auto 0.3 % (0.0-0.4); Lymphocytes Absolute Auto 1.7 X10*3/uL (1.2-4.9); Mean Corpuscular HGB Conc 32.4 g/dl (31.0-35.0); Mean Corpuscular Hemoglobin 28.9 pg (27.0-33.0); Mean Corpuscular Volume 89.1 fL (80.0-98.0); NRBC Abs Auto 0.000 X10*3/uL (0.0-0.012); NRBC Pct Auto 0.0 /100WBC (0.0-0.2); Platelet Count 309 X10*3/uL (160-400); Red Blood Count 4.88 X10*6/uL (4.20-5.50); White Blood Count 7.0 X10*3/uL (4.8-10.8)
[2025-04-04 19:05] LABS: Alanine Aminotransferase 16 U/L (0-31); Albumin Level 4.1 g/dL (3.5-5.0); Alkaline Phosphatase 67 U/L (39-117); Anion Gap 10 (12-20); Aspartate Amino Transferase 22 U/L (5-31); Blood Urea Nitrogen 14 mg/dL (9-16); Calcium 8.8 mg/dL (8.4-10.2); Carbon Dioxide 27 mmol/L (22-29); Chloride 105 mmol/L (96-108); Cholesterol 151 mg/dL (<200); Estimated Glomerular Filt Rate > 60; HDL Cholesterol 37 mg/dL (>40); Potassium 4.2 mmol/L (3.3-5.1); Sodium 138 mmol/L (135-145); Total Protein 7.0 g/dL (6.5-8.0); Triglycerides 148 mg/dL (<150)
== END 2025-04-04 11:26 | disposition home or self-care (01) ==
LOC: HO.MANLDS 11:25
PROVIDERS: Visit Provider Physician Assistant
DX: E11.9 Type 2 diabetes mellitus without complications (principal)
CPT/HCPCS: 36415; 80053; 80061; 83036; 85025